=== PATIENT | female | born 1945 | race Caucasian/White ===

== ENCOUNTER 2016-11-10 01:32 | Emergency (ER) | payer OTHER ==
[~2016-11-10 01:32] MED LIST: ASPIRINEC PO; ATIVAN PO; CLONIDINE PO; COLESTID PO; COREG PO; HUMALOG MIX 75/10 ML SUBQ; HUMALOG100 U/ML SUBQ; KLONOPIN1 MG PO; LANTUS100 U/ML INJ; LEVAQUIN750 MG PO; LISINOPRIL PO; LOC PO; MAXZIDE 75/50 T1 TAB PO; METFORMIN; METFORMIN PO; MICRO-K PO; NORCO 10/325 TA1 TAB PO; PAXIL PO; PERCOCET 10-651 EACH PO; ROBAXIN 750750 M1 PO; ROBAXIN PO; VOLTAREN75 MG PO; WELCHOL625 MG PO; ZANTAC PO
[2016-11-10] MEDS ORDERED: KCL (01:45)
[2016-11-10 02:00] LABS: URINE SOURCE CLEAN CATCH
[2016-11-10 02:01] LABS: MICRO INDICATED? YES; URINE APPEARANCE CLEAR; URINE BILIRUBIN NEG (NEG); URINE BLOOD TRACE-INTACT (NEG); URINE COLOR DK YELLOW; URINE GLUCOSE NEG (NORM); URINE KETONE TRACE (NEG); URINE LEUKOCYTE ESTERASE NEG (NEG); URINE NITRATE NEG (NEG); URINE PH 5.5 (5-8); URINE PROTEIN 1+ (NEG); URINE SPECIFIC GRAVITY 1.025 (1.003-1.035)
[2016-11-10 02:03] LABS: CULTURE INDICATED? YES; URINE BACTERIA 2+ (NEG); URINE SQUAMOUS EPITHELIAL CELL MANY /[HPF]; URINE YEAST PRESENT
== END 2016-11-10 04:02 | disposition home or self-care (01) ==
LOC: SED 01:32
PROVIDERS: Student in an Organized Health Care Education/Training Program
DX: L03.317 Cellulitis of buttock (principal); L02.31 Cutaneous abscess of buttock; R11.2 Nausea with vomiting, unspecified; I10 Essential (primary) hypertension; E11.9 Type 2 diabetes mellitus without complications; Z90.49 Acquired absence of other specified parts of digestive tract; Z90.710 Acquired absence of both cervix and uterus; Z79.899 Other long term (current) drug therapy; Z88.1 Allergy status to other antibiotic agents
CPT/HCPCS: 81003; 87086; 99284